=== PATIENT | female | born 2000 | race Caucasian/White ===

== ENCOUNTER → 2025-07-21 13:49 | Outpatient (REF) | payer BC, SELFPAY | LOC: PNTC 13:49 | PROVIDERS: ATTENDING PHYSICIAN Advanced Practice Midwife | DX: O48.0 Post-term pregnancy (principal); O36.8330 Maternal care for abnormalities of the fetal heart rate or rhythm, third trimester, not applicable or unspecified | CPT/HCPCS: 59025; 76818 ==

== ENCOUNTER 2025-07-23 08:22 | Inpatient (IN) | payer BC, SELFPAY ==
[2025-07-23 09:19] LABS: Hematocrit 34.3 % (37.0-47.0); Hemoglobin 11.5 g/dL (12.0-16.0); Mean Corp Hgb Conc. 33.5 g/dL (33.0-37.0); Mean Corpuscular Volume 85.8 fL (81.0-99.0); Nucleated Red Blood Cells % 0 %; Platelet Count 141 10^3/uL (130-400); Red Cell Dist. Width 11.9 % (11.5-14.5)
[2025-07-23 10:06] VITALS: BP 130/79; BMI 32.6
[2025-07-23] MEDS: PITOCIN 30 UNITS/NSS 500 ML IV ×2 (13:30→20:53)
[2025-07-23] MEDS: LR 1000 IV ×2 (13:33→19:30)
[2025-07-23] MEDS: STADOL 1 MG IV (18:40)
[2025-07-23] MEDS: XYLOCAINE-MPF 1% VIAL 30 ML INFIL (20:56)
[2025-07-23] MEDS: MOTRIN 600 MG PO (21:20)
[2025-07-24] MEDS: TYLENOL 650 MG PO ×3 (08:11→22:49)
[2025-07-24] MEDS: COLACE 100 MG PO ×2 (08:11→20:28)
[2025-07-24] MEDS: MOTRIN 600 MG PO ×3 (08:12→22:49)
[2025-07-25] MEDS: MOTRIN 600 MG PO (09:07)
[2025-07-25] MEDS: TYLENOL 650 MG PO (09:07)
[2025-07-25] MEDS: COLACE 100 MG PO (09:07)
[2025-07-25 16:34] LABS: Syphilis/T. pallidum Ab Reflex Negative (Negative)
== END 2025-07-25 12:02 | disposition home or self-care (01) | DRG 807 ==
LOC: LDRP 08:22
PROVIDERS: ADMITTING PHYSICIAN Advanced Practice Midwife
PROC: 10907ZC Drainage of Amniotic Fluid, Therapeutic from Products of Conception, Via Natural or Artificial Opening (ICD-10-PCS; 2025-07-23)
PROC: 10E0XZZ Delivery of Products of Conception, External Approach (ICD-10-PCS; 2025-07-23)
PROC: 0HQ9XZZ Repair Perineum Skin, External Approach (ICD-10-PCS; 2025-07-23)
PROC: 3E033VJ Introduction of Other Hormone into Peripheral Vein, Percutaneous Approach (ICD-10-PCS; 2025-07-23)
DX: O48.0 Post-term pregnancy (principal); Z37.0 Single live birth; O70.0 First degree perineal laceration during delivery; Z3A.40 40 weeks gestation of pregnancy
CPT/HCPCS: 36415; 85025; 86780; 86850; 86900; 86901